=== PATIENT | female | born 1965 | race Hispanic/Latino ===

== ENCOUNTER 2021-02-21 21:44 | Inpatient (IN) | payer OTHER, SELFPAY ==
[~2021-02-21] VITALS: Ht 172.7 cm; Wt 101.0 kg
[2021-02-21 22:13] VITALS: BP 115/55
[2021-02-21 22:55] LABS: BASOPHILS % (AUTO) 0.1 % (0.0-5.0); HEMATOCRIT 42.9 % (36-48); LYMPHOCYTES % (AUTO) 12.5 % (21.0-51.0); MEAN CORPUSCULAR HEMOGLOBIN 29.2 pg (27.0-33.0); MEAN CORPUSCULAR HGB CONC 33.6 g/dL (32.0-36.0); MONOCYTES % (AUTO) 4.4 % (3.0-13.0); NEUTROPHILS % (AUTO) 82.4 % (40.0-77.0); PLATELET COUNT (AUTO) 322 K/uL (130-400); RED BLOOD CELL COUNT(AUTO) 4.93 MIL/uL (4.00-5.50); RED CELL DISTRIBUTION WIDTH 13.9 % (11.0-15.5); WHITE BLOOD COUNT (AUTO) 9.6 K/uL (4.8-10.8)
[2021-02-21] MEDS ORDERED: LACTATED RINGERS 1000ML 1,000 ML IV ONE (23:00)
[2021-02-21 23:12] LABS: INR 0.94 (0.85-1.15); PROTHROMBIN TIME 10.3 SEC (9.6-11.6)
[2021-02-21 23:14] LABS: PARTIAL THROMBOPLASTIN TIME 37.3 SEC (26.3-35.5)
[2021-02-21 23:15] LABS: ALBUMIN 3.3 g/dL (3.5-5.0); BILIRUBIN,TOTAL 0.6 mg/dL (0.2-1.0); MAGNESIUM 2.3 mg/dL (1.80-2.40); TOTAL PROTEIN, SERUM 8.1 g/dL (6.0-8.3)
[2021-02-21 23:19] LABS: CRP QUANTITATIVE 271.4 mg/L (0.00-9.0)
[2021-02-22] VITALS (7 sets, daily range): BP systolic 95–131; BP diastolic 40–76
[2021-02-22] MEDS ORDERED: DEXAMETHASONE SOD PHOSPHATE 4 MG/ML 1ML VIAL IVP SCH (01:00)
[2021-02-22] MEDS ORDERED: MAGNESIUM 2GM PREMIX 50ML 50 ML IV SCH (01:00)
[2021-02-22] MEDS ORDERED: 0.9% NACL 250ML IVPB ONE (01:00)
[2021-02-22] MEDS ORDERED: CEFTRIAXONE 1G VIAL IVP ONE (01:00)
[2021-02-22] MEDS ORDERED: AZITHROMYCIN 500MG VIAL IVPB ONE (01:00)
[2021-02-22 01:17] LABS: ABG BASE EXCESS -1.6 mmol/L (-2.0-3.0); ABG OXYGEN SATURATION 89.8 % (95.0-99.0); ABG PCO2 34 mmHg (32-45)
[2021-02-22] MEDS ORDERED: AZITHROMYCIN 500MG+NS 250ML 250 ML IV ONE (01:43)
[2021-02-22] MEDS ORDERED: MORPHINE 2 MG SYG IV PRN (03:30)
[2021-02-22] MEDS: DEXAMETHASONE SOD PHOSPHATE 4 MG/ML 1ML VIAL IVP SCH (03:30)
[2021-02-22] MEDS ORDERED: ONDANSETRON 4MG INJ IV PRN (03:30)
[2021-02-22] MEDS: CEFTRIAXONE 1G VIAL IV SCH (03:30)
[2021-02-22] MEDS ORDERED: ACETAMINOPHEN 325 MG TAB PO PRN (03:30)
[2021-02-22] MEDS ORDERED: LACTULOSE 20 GM/30 ML UDCUP PO PRN (03:30)
[2021-02-22] MEDS ORDERED: NITROGLYCERIN 0.4 MG SL TAB SL PRN (03:30)
[2021-02-22] MEDS ORDERED: MAG/ALUM/SIMETH 30 ML UDCUP PO PRN (03:30)
[2021-02-22] MEDS ORDERED: DIPHENHYDRAMINE HCL 25 MG CAPSULE PO PRN (03:30)
[2021-02-22 04:00] LABS: HEMOGLOBIN A1C 7.3 % (4.0-6.0)
[2021-02-22] MEDS ORDERED: DEXTROSE 50%-WATER 50 ML DISP.SYRIN IV PRN (04:00)
[2021-02-22] MEDS ORDERED: GLUCAGON 1MG KIT 1 MG ML IM PRN (04:00)
[2021-02-22] MEDS: AZITHROMYCIN 500MG VIAL IVPB SCH (04:00)
[2021-02-22] MEDS: 0.9% NACL 250ML IVPB SCH (04:00)
[2021-02-22] MEDS ORDERED: SOLU-MEDROL 125MG VIAL ONE (04:29)
[2021-02-22] MEDS ORDERED: ALBUTEROL INHALER 90MCG/INH IH PRN (04:30)
[2021-02-22] MEDS ORDERED: ALBUTEROL INHALER 90MCG/INH IH ONE (04:34)
[2021-02-22] MEDS ORDERED: SOLU-MEDROL 125MG VIAL IVP ONE (05:00)
[2021-02-22] MEDS: FAMOTIDINE 20MG VIAL IV SCH ×2 (08:52→21:11)
[2021-02-22] MEDS: ZINC SULFATE 220 CAPSULE PO SCH (08:52)
[2021-02-22] MEDS: INSULIN HUMULIN R 100 UNIT/ML 3ML SQ SCH ×4 (08:52→20:33)
[2021-02-22] MEDS: ASCORBIC ACID 500 MG TAB PO SCH (08:52)
[2021-02-22] MEDS ORDERED: ENOXAPARIN SODIUM 40 MG/0.4 ML SYRINGE SQ SCH (09:00)
[2021-02-22] MEDS ORDERED: IOHEXOL-350 75 ML VIAL IV ONE (09:03)
[2021-02-22 09:58] LABS: CREATININE 0.9 mg/dL (0.5-1.5); POTASSIUM 4.5 mmol/L (3.5-5.1)
[2021-02-22 10:03] LABS: ALBUMIN 2.9 g/dL (3.5-5.0); BILIRUBIN,TOTAL 0.4 mg/dL (0.2-1.0); TOTAL PROTEIN, SERUM 7.5 g/dL (6.0-8.3)
[2021-02-22] MEDS ORDERED: REMDESIVIR (EUA) 520 200 MG in 0.9% NACL 250ML 250 ML IV ONE (10:30)
[2021-02-22] MEDS ORDERED: PHARMACY COMMUNICATION MISC SCH (10:30)
[2021-02-22] MEDS ORDERED: COMPOUND IV REFRIGERATED 1 EACH IVSOLN MISC PRN (10:30)
[2021-02-22] MEDS ORDERED: [UNRECOGNIZED DRUG - REMARK] MISC SCH (20:00)
[2021-02-22] MEDS: ENOXAPARIN SODIUM 40 MG/0.4 ML SYRINGE SQ SCH (21:12)
[2021-02-23] VITALS: BP 125/67
[2021-02-23] MEDS ORDERED: AZITHROMYCIN 500MG+NS 250ML 250 ML IV ONE (03:13)
[2021-02-23] MEDS: CEFTRIAXONE 1G VIAL IV SCH (03:25)
[2021-02-23] MEDS: DEXAMETHASONE SOD PHOSPHATE 4 MG/ML 1ML VIAL IVP SCH (03:25)
[2021-02-23 04:02] VITALS: BP 110/50
[2021-02-23] MEDS: AZITHROMYCIN 500MG VIAL IVPB SCH (05:04)
[2021-02-23] MEDS: 0.9% NACL 250ML IVPB SCH (05:04)
[2021-02-23 05:51] LABS: BASOPHILS % (AUTO) 0.1 % (0.0-5.0); HEMATOCRIT 40.6 % (36-48); LYMPHOCYTES % (AUTO) 7.5 % (21.0-51.0); MEAN CORPUSCULAR HEMOGLOBIN 28.9 pg (27.0-33.0); MEAN CORPUSCULAR HGB CONC 33.7 g/dL (32.0-36.0); MEAN CORPUSCULAR VOLUME 85.7 fL (79-99); MONOCYTES % (AUTO) 3.4 % (3.0-13.0); PLATELET COUNT (AUTO) 391 K/uL (130-400); RED BLOOD CELL COUNT(AUTO) 4.74 MIL/uL (4.00-5.50); RED CELL DISTRIBUTION WIDTH 13.5 % (11.0-15.5); WHITE BLOOD COUNT (AUTO) 13.9 K/uL (4.8-10.8)
[2021-02-23] MEDS: REMDESIVIR LABS MISC SCH (06:03)
[2021-02-23 06:14] LABS: ALBUMIN 2.6 g/dL (3.5-5.0); BILIRUBIN,TOTAL 0.4 mg/dL (0.2-1.0); CREATININE 0.7 mg/dL (0.5-1.5); POTASSIUM 4.1 mmol/L (3.5-5.1); TOTAL PROTEIN, SERUM 7.2 g/dL (6.0-8.3)
[2021-02-23 06:23] LABS: CRP QUANTITATIVE 185.2 mg/L (0.00-9.0)
[2021-02-23] MEDS: ZINC SULFATE 220 CAPSULE PO SCH (08:24)
[2021-02-23] MEDS: FAMOTIDINE 20MG VIAL IV SCH ×2 (08:24→21:37)
[2021-02-23] MEDS: ASCORBIC ACID 500 MG TAB PO SCH (08:24)
[2021-02-23] MEDS: ENOXAPARIN SODIUM 40 MG/0.4 ML SYRINGE SQ SCH ×2 (08:24→21:38)
[2021-02-23 10:22] VITALS: BP 104/54
[2021-02-23] MEDS: INSULIN HUMULIN R 100 UNIT/ML 3ML SQ SCH ×5 (11:30→21:56)
[2021-02-23] MEDS: REMDESIVIR (EUA) 520 100 MG in 0.9% NACL 250ML 250 ML IV SCH (13:36)
[2021-02-23 16:25] VITALS: BP 135/89
[2021-02-23 20:00] VITALS: BP 109/51
[2021-02-23] MEDS: BARICITINIB (EUA) 2 MG TABLET PO SCH (20:17)
[2021-02-24] VITALS (7 sets, daily range): BP systolic 98–127; BP diastolic 43–74
[2021-02-24] MEDS ORDERED: AZITHROMYCIN 500MG+NS 250ML 250 ML IV ONE (03:51)
[2021-02-24] MEDS: 0.9% NACL 250ML IVPB SCH (03:53)
[2021-02-24] MEDS: CEFTRIAXONE 1G VIAL IV SCH (03:53)
[2021-02-24] MEDS: AZITHROMYCIN 500MG VIAL IVPB SCH (03:53)
[2021-02-24] MEDS: DEXAMETHASONE SOD PHOSPHATE 4 MG/ML 1ML VIAL IVP SCH (03:54)
[2021-02-24 05:22] LABS: BASOPHILS % (AUTO) 0.2 % (0.0-5.0); HEMATOCRIT 39.8 % (36-48); LYMPHOCYTES % (AUTO) 12.8 % (21.0-51.0); MEAN CORPUSCULAR HEMOGLOBIN 28.7 pg (27.0-33.0); MEAN CORPUSCULAR HGB CONC 32.9 g/dL (32.0-36.0); MEAN CORPUSCULAR VOLUME 87.1 fL (79-99); NEUTROPHILS % (AUTO) 80.9 % (40.0-77.0); PLATELET COUNT (AUTO) 436 K/uL (130-400); RED BLOOD CELL COUNT(AUTO) 4.57 MIL/uL (4.00-5.50); RED CELL DISTRIBUTION WIDTH 13.8 % (11.0-15.5); WHITE BLOOD COUNT (AUTO) 9.6 K/uL (4.8-10.8)
[2021-02-24 05:39] LABS: ALBUMIN 2.5 g/dL (3.5-5.0); BILIRUBIN,DIRECT 0.1 mg/dL (0.0-0.3); BILIRUBIN,TOTAL 0.4 mg/dL (0.2-1.0); CREATININE 0.8 mg/dL (0.5-1.5); CRP QUANTITATIVE 86.3 mg/L (0.00-9.0); TOTAL PROTEIN, SERUM 6.6 g/dL (6.0-8.3)
[2021-02-24] MEDS: REMDESIVIR LABS MISC SCH (06:00)
[2021-02-24] MEDS: INSULIN HUMULIN R 100 UNIT/ML 3ML SQ SCH ×7 (06:19→20:36)
[2021-02-24] MEDS: BARICITINIB (EUA) 2 MG TABLET PO SCH (09:04)
[2021-02-24] MEDS: ASCORBIC ACID 500 MG TAB PO SCH (09:04)
[2021-02-24] MEDS: FAMOTIDINE 20MG VIAL IV SCH ×2 (09:04→20:31)
[2021-02-24] MEDS: ZINC SULFATE 220 CAPSULE PO SCH (09:04)
[2021-02-24] MEDS: ENOXAPARIN SODIUM 40 MG/0.4 ML SYRINGE SQ SCH ×2 (09:05→20:31)
[2021-02-24] MEDS: REMDESIVIR (EUA) 520 100 MG in 0.9% NACL 250ML 250 ML IV SCH (13:10)
[2021-02-25] VITALS (7 sets, daily range): BP systolic 122–131; BP diastolic 58–75
[2021-02-25] MEDS: 0.9% NACL 250ML IVPB SCH (03:54)
[2021-02-25] MEDS: DEXAMETHASONE SOD PHOSPHATE 4 MG/ML 1ML VIAL IVP SCH (04:30)
[2021-02-25 04:34] LABS: BASOPHILS % (AUTO) 0.2 % (0.0-5.0); HEMATOCRIT 38.9 % (36-48); LYMPHOCYTES % (AUTO) 15.8 % (21.0-51.0); MEAN CORPUSCULAR HEMOGLOBIN 28.9 pg (27.0-33.0); MEAN CORPUSCULAR HGB CONC 33.7 g/dL (32.0-36.0); MEAN CORPUSCULAR VOLUME 85.7 fL (79-99); NEUTROPHILS % (AUTO) 77.3 % (40.0-77.0); PLATELET COUNT (AUTO) 492 K/uL (130-400); RED BLOOD CELL COUNT(AUTO) 4.54 MIL/uL (4.00-5.50); RED CELL DISTRIBUTION WIDTH 13.6 % (11.0-15.5); WHITE BLOOD COUNT (AUTO) 10.6 K/uL (4.8-10.8)
[2021-02-25 04:54] LABS: ALBUMIN 2.6 g/dL (3.5-5.0); BILIRUBIN,TOTAL 0.5 mg/dL (0.2-1.0); CREATININE 0.9 mg/dL (0.5-1.5); CRP QUANTITATIVE 47.6 mg/L (0.00-9.0); POTASSIUM 3.7 mmol/L (3.5-5.1); TOTAL PROTEIN, SERUM 6.5 g/dL (6.0-8.3)
[2021-02-25] MEDS: INSULIN HUMULIN R 100 UNIT/ML 3ML SQ SCH ×7 (06:33→20:38)
[2021-02-25] MEDS: REMDESIVIR LABS MISC SCH (07:10)
[2021-02-25] MEDS: FAMOTIDINE 20MG VIAL IV SCH ×2 (08:43→20:48)
[2021-02-25] MEDS: ENOXAPARIN SODIUM 40 MG/0.4 ML SYRINGE SQ SCH ×2 (08:43→20:50)
[2021-02-25] MEDS: BARICITINIB (EUA) 2 MG TABLET PO SCH (08:43)
[2021-02-25] MEDS: REMDESIVIR (EUA) 520 100 MG in 0.9% NACL 250ML 250 ML IV SCH (13:18)
[2021-02-25] MEDS: GUAIFENESIN-DM 200/20 MG 10 ML PO PRN (20:48)
[2021-02-26 03:44] VITALS: BP 122/74
[2021-02-26] MEDS: 0.9% NACL 250ML IVPB SCH (04:00)
[2021-02-26 05:00] LABS: BASOPHILS % (AUTO) 0.5 % (0.0-5.0); EOSINOPHILS % (AUTO) 0.2 % (0.0-8.0); HEMATOCRIT 44.2 % (36-48); LYMPHOCYTES % (AUTO) 17.2 % (21.0-51.0); MEAN CORPUSCULAR HEMOGLOBIN 28.7 pg (27.0-33.0); MEAN CORPUSCULAR HGB CONC 32.8 g/dL (32.0-36.0); MEAN CORPUSCULAR VOLUME 87.5 fL (79-99); MONOCYTES % (AUTO) 4.3 % (3.0-13.0); NEUTROPHILS % (AUTO) 74.8 % (40.0-77.0); PLATELET COUNT (AUTO) 603 K/uL (130-400); RED BLOOD CELL COUNT(AUTO) 5.05 MIL/uL (4.00-5.50); RED CELL DISTRIBUTION WIDTH 13.5 % (11.0-15.5); WHITE BLOOD COUNT (AUTO) 14.1 K/uL (4.8-10.8)
[2021-02-26 05:17] LABS: BILIRUBIN,TOTAL 0.7 mg/dL (0.2-1.0); CRP QUANTITATIVE 42.8 mg/L (0.00-9.0); MAGNESIUM 2.2 mg/dL (1.80-2.40); PHOSPHORUS 3.8 mg/dL (2.5-4.9); POTASSIUM 3.2 mmol/L (3.5-5.1); TOTAL PROTEIN, SERUM 7.4 g/dL (6.0-8.3)
[2021-02-26] MEDS: INSULIN HUMULIN R 100 UNIT/ML 3ML SQ SCH ×6 (06:16→16:35)
[2021-02-26] MEDS: REMDESIVIR LABS MISC SCH (06:45)
[2021-02-26] MEDS ORDERED: DEXAMETHASONE 4 MG TAB PO SCH (09:00)
[2021-02-26] MEDS: FAMOTIDINE 20MG VIAL IV SCH (09:36)
[2021-02-26] MEDS: BARICITINIB (EUA) 2 MG TABLET PO SCH (09:43)
[2021-02-26] MEDS: ENOXAPARIN SODIUM 40 MG/0.4 ML SYRINGE SQ SCH (09:47)
[2021-02-26 11:53] VITALS: BP 132/64
[2021-02-26] MEDS: REMDESIVIR (EUA) 520 100 MG in 0.9% NACL 250ML 250 ML IV SCH (13:54)
[2021-02-26] MEDS: GUAIFENESIN-DM 200/20 MG 10 ML PO PRN (14:03)
[2021-02-26 16:00] VITALS: BP 128/69
[2021-02-26] MEDS ORDERED: PANT40TA54 PO (16:24)
[2021-02-26] MEDS ORDERED: APIX2.5T PO (16:24)
[2021-02-26] MEDS ORDERED: DEXA6TAB PO (16:24)
[2021-02-26] MEDS ORDERED: METF-444 PO (16:24)
[2021-02-26] MEDS ORDERED: KCL 20 MEQ ERTAB PO ONE (16:30)
[2021-02-26] MEDS ORDERED: METFORMIN HCL 500 MG TABLET PO SCH (17:00)
== END 2021-02-26 18:47 | disposition home or self-care (01) | DRG 177 ==
LOC: EDH 21:44 → EDHIP 21:45 → 2AH 02-24 03:10
PROVIDERS: ADMIT Hospitalist; ATTEND Hospitalist
PROC: XW033E5 Introduction of Remdesivir Anti-infective into Peripheral Vein, Percutaneous Approach, New Technology Group 5 (ICD-10-PCS; principal; 2021-02-22)
PROC: XW0DXM6 Introduction of Baricitinib into Mouth and Pharynx, External Approach, New Technology Group 6 (ICD-10-PCS; 2021-02-23)
PROC: 5A0935A Assistance with Respiratory Ventilation, Less than 24 Consecutive Hours, High Flow/Velocity Cannula (ICD-10-PCS; 2021-02-23)
PROC: 5A0935A Assistance with Respiratory Ventilation, Less than 24 Consecutive Hours, High Flow/Velocity Cannula (ICD-10-PCS; 2021-02-25)
DX: U07.1 COVID-19 (principal); J12.82 Pneumonia due to coronavirus disease 2019; J96.01 Acute respiratory failure with hypoxia; E11.9 Type 2 diabetes mellitus without complications; E66.01 Morbid (severe) obesity due to excess calories; E86.0 Dehydration; I10 Essential (primary) hypertension; R53.81 Other malaise; Z68.34 Body mass index [BMI] 34.0-34.9, adult; Z79.84 Long term (current) use of oral hypoglycemic drugs; Z83.3 Family history of diabetes mellitus; Z79.01 Long term (current) use of anticoagulants
CPT/HCPCS: 36415; 36600; 71045; 71275; 80048; 80053; 80076; 82550; 82728; 82803; 82948; 83036; 83605; 83690; 83735; 83880; 84100; 84145; 84484; 85025; 85378; 85610; 85730; 86140; 87040; 87635; 87804; 93005; 93970; 94760; C9803; G0378; J0456; J0696; J1100; J1650; J1815; J2930; J3475; J3490; J7050; J8540; Q9967